=== PATIENT | female | born 1935 | race Caucasian/White ===

== ENCOUNTER 2017-08-07 11:40 | Inpatient (IN) ==
[2017-08-07 12:18] LABS: Basophils # 0.1 K/mcL (0.0-0.2); Basophils % 0.3 %; Eosinophils # 0.1 K/mcL (0.0-0.6); Eosinophils % 0.3 %; Hematocrit 38.1 % (35.3-44.9); Hemoglobin 12.9 g/dL (11.5-15.4); Immature Granulocytes % 0.4 % (0-4); Immature Platelets 1.8 % (1.1-6.1); Lymphocytes # 1.2 K/mcL (0.6-4.6); Lymphocytes % 8.4 %; Mean Corpuscular HGB Conc 33.9 g/dL (31.6-35.5); Mean Corpuscular Hemoglobin 30.9 pg (28.0-33.3); Mean Corpuscular Volume 91.4 fL (83.0-100.0); Mean Platelet Volume 9.3 fL (9.4-12.4); Monocytes # 1.5 K/mcL (0.0-1.3); Monocytes % 10.5 %; Neutrophils # 11.7 K/mcL (1.6-8.9); Platelet Count 241 K/mcL (140-400); Red Blood Count 4.17 M/mcL (3.82-4.97); Red Cell Distribution Width 12.7 % (11.5-14.5); Segmented Neutrophils % 80.1 %
[2017-08-07 12:30] LABS: Albumin 3.7 g/dL (3.5-5.0); Albumin/Globulin Ratio 0.9 (1.1-2.2); Bilirubin,Total 0.7 mg/dL (0.2-1.2); Calcium 9.7 mg/dL (8.6-10.8); Potassium 3.8 mEq/L (3.5-4.5); Total Protein 7.7 g/dL (6.0-8.3)
[2017-08-07] MEDS ORDERED: Vancomycin 2,000 MG in D5% in Water 250 ML IVPB ONE (12:35)
[2017-08-07] MEDS ORDERED: Vancomycin 2,000 MG in D5% in Water 500 ML IVPB ONE (12:38)
--- NOTE | 2017-08-07 12:52 | Emergency Department Note ---
Disposition Clinical Impression: Cellulitis Qualifiers: Site of cellulitis: extremity Site of cellulitis of extremity: lower extremity Laterality: right Qualified Code(s): L03.115 - Cellulitis of right lower limb Disposition: Admitted As Inpatient Condition: Fair Referrals: Janee Mcgowan MD [Primary Care Provider] - Forms: ED Satisfaction Letter Time of Disposition: 15:10 General Adult HPI - General Chief complaint: ED Extremity Problem,Nontraumatic Stated complaint: Foot problem Source: patient Limitations: no limitations Nursing Notes Reviewed: Yes Vital Signs Reviewed: Yes - History of Present Illness HPI Narrative: Patient presents with over 1 week of right foot erythema and also purulent drainage and she has been on Bactrim for the last 6 days without adequate improvement and now for the last 2 days has some minimal alteration in consciousness which is confusion according to her 2 daughters who are here with her. She does have significant peripheral neuropathy is not able to feel her right foot so does not have pain in this location. No blurred vision, cough, blood in the urine or stool or bruising of the skin. Social history: No smoking Pain Scale: 0 - Related Data Home Medications Medication Instructions Recorded Confirmed Aspirin Enteric Coated [Aspirin EC] 81 mg PO DAILY 07/17/15 08/07/17 Citalopram [CeleXA] 40 mg PO DAILY 07/17/15 08/07/17 Ezetimibe/Simvastatin [Vytorin 1 tab PO DAILY 07/17/15 08/07/17 10-80 mg Tablet] Losartan/Hydrochlorothiazide 1 tab PO DAILY 07/17/15 08/07/17 [Hyzaar 100-25 Tablet] Metoprolol XL (24 HR) Succ [Toprol 100 mg PO DAILY 07/17/15 08/07/17 XL] [place]-3S/Dha/Epa/Fish Oil [Fish 1 cap PO DAILY 07/17/15 08/07/17 Oil 1,200 mg Softgel] Esomeprazole Magnesium [Nexium] 40 mg PO DAILY 08/07/17 08/07/17 Sulfamethoxazole/Trimeth DS 1 cap PO Q12H 08/07/17 08/07/17 [Bactrim Ds] Allergies Allergy/AdvReac Type Severity Reaction Status Date / Time Penicillins [PCN] AdvReac Rash Verified 07/17/15 12:14 Review of Systems: Constitutional: No fever Vision: No blurred vision ENT: No rhinorrhea Respiratory: No cough Allergic: No allergies : No blood in urine GI: No blood in stool Hematologic: No bruising Dermatologic: No skin rash except there is edema and redness of the right foot Musculoskeletal: No pain in the extremities Neuro: No new numbness of the extremities Past Medical History - Past Medical History Medical history: Reports: GERD, hyperlipidemia, hypertension, other Surgical history: Reports: other Psychiatric history: Reports: anxiety, depression [employer]ICAL [employer] EM[employer]OYEE history: Reports: ectopic - Social History Smoking Status: Never smoker Smokeless Tobacco Status: No Alcohol use: Reports: none Drug use: Reports: none Physical Exam CONSTITUTIONAL: Alert and oriented X3, well-nourished, well appearing, in no apparent distress HEAD: Normocephalic; atraumatic. EYES: PERRL, no scleral icterus. NOSE: The nose is normal in appearance without rhinorrhea RESP: Normal chest excursion with respiration; breath sounds clear and equal bilaterally; no wheezes, rhonchi, or rales CARD: Regular rhythm, without murmurs, rub or gallop ABD: Non-distended; non-tender, soft,without rigidity, rebound or guarding SKIN: Normal for age and race; warm and dry; no apparent lesions Extremities: Does have some edema and erythema of the right foot crepitus or necrosis. Between the second and third toe there is purulent drainage. No fluctuant areas and no ecchymosis - General Limitations: no limitations General appearance: alert Course Vital Signs Temperature 98.4 F 08/07/17 11:48 Pulse Rate 102 08/07/17 11:48 Respiratory Rate 16 08/07/17 11:48 Blood Pressure 151/70 08/07/17 11:48 O2 Sat by Pulse Oximetry 96 08/07/17 11:48 Temperature 98.4 F 08/07/17 11:48 Pulse Rate 80 08/07/17 13:55 Respiratory Rate 18 08/07/17 13:55 Blood Pressure 122/90 08/07/17 13:55 O2 Sat by Pulse Oximetry 95 08/07/17 13:55 Oxygen Delivery Oxygen Delivery Room Air Medical Decision Making - MDM Narrative Medical decision making narrative: the patient will be started on IV vancomycin because of failed outpatient therapy with Bactrim, will be admitted especially because of altered consciousness. For me she does know the day of the week date and the year name of the hospital however her daughter states that for the last 2 days she has had some confusion which is new. Labs are pending. 1253 I did review the patient's lab results showing leukocytosis, evidence of acute renal failure as well the patient does have an x-ray which does not show osteomyelitis. I did speak with the hospitalist who accepted the patient for admission. I have started her on intravenous vancomycin because she has failed outpatient Bactrim. She does have a draining wound so there is no indication at this point for incision and drainage. 1509 - Medical Records Medical records reviewed: Yes I reviewed the patient's medical records. - Lab Data Lab results reviewed: Yes I reviewed the patient's lab results. Result diagrams: 08/07/17 12:11 08/07/17 12:11 Lab Results 08/07/17 08/07/17 08/07/17 Range/Units 12:11 12:11 12:11 WBC 14.6 H (4.3-11.1) K/mcL RBC 4.17 (3.82-4.97) M/mcL Hgb 12.9 (11.5-15.4) g/dL Hct 38.1 (35.3-44.9) % MCV 91.4 (83.0-100.0) fL MCH 30.9 (28.0-33.3) pg MCHC 33.9 (31.6-35.5) g/dL RDW 12.7 (11.5-14.5) % Plt Count 241 (140-400) K/mcL MPV 9.3 L (9.4-12.4) fL Immature Gran % 0.4 (0-4) % Seg Neutrophils % 80.1 % Lymphocytes % 8.4 % Monocytes % 10.5 % Eosinophils % 0.3 % Basophils % 0.3 % Neutrophils # 11.7 H (1.6-8.9) K/mcL Lymphocytes # 1.2 (0.6-4.6) K/mcL Monocytes # 1.5 H (0.0-1.3) K/mcL Eosinophils # 0.1 (0.0-0.6) K/mcL Basophils # 0.1 (0.0-0.2) K/mcL Immature Plt Fraction 1.8 (1.1-6.1) % Sodium 135 L (136-145) mEq/L Potassium 3.8 (3.5-4.5) mEq/L Chloride 102 (98-109) mEq/L Carbon Dioxide 20 (19-29) mEq/L BUN 18 (7-20) mg/dL Creatinine 1.33 H (0.57-1.11) mg/dL Est GFR ( Amer) 46 L (> 60) Est GFR (Non-Af Amer) 38 L (> 60) BUN/Creatinine Ratio 14 (6-26) Glucose 122 H (70-99) mg/dL Calculated Osmolality 283 (280-300) Lactic Acid 3.1 H (0.5-2.2) mmol/L Calcium 9.7 (8.6-10.8) mg/dL Total Bilirubin 0.7 (0.2-1.2) mg/dL AST 25 (5-34) Units/L ALT 20 (0-55) Units/L Alkaline Phosphatase 106 (38-126) Units/L Serum Total Protein 7.7 (6.0-8.3) g/dL Albumin 3.7 (3.5-5.0) g/dL Globulin 4.0 H (2.4-3.5) g/dL Albumin/Globulin Ratio 0.9 L (1.1-2.2) - Radiology Data Radiology results reviewed: Yes I reviewed the patient's radiology results.
--- NOTE | 2017-08-07 17:18 | Internal Med History&Physical ---
Date of Encounter: 08/07/17 Time of Encounter: 15:00 Assessment and Plan (1) Cellulitis of right foot Current visit: Yes Status: Acute She was undergoing outpatient treatment with Bactrim and her symptoms got worse. Cellulitis involving the distal third of the right foot in the first 3 toes. Skin is warm and red there is significant soft tissue edema, open wounds and drainage from the second and third toes of the right foot. Plan: IV Zosyn, wound culture, podiatry consult, ESR and CRP. Monitor WBC trend. (2) Essential hypertension Current visit: Yes Status: Acute Continue lisinopril and metoprolol. (3) Peripheral neuropathy Current visit: Yes Status: Acute Could be contributing to her fall risk. We will obtain PT OT evaluation and fall precautions. Qualifiers: Peripheral neuropathy type: polyneuropathy, unspecified Qualified Code(s): G62.9 - Polyneuropathy, unspecified (4) Elevated serum creatinine Current visit: Yes Status: Acute Monitor BUN and creatinine daily. Avoid nephrotoxins. (5) GERD (gastroesophageal reflux disease) Current visit: Yes Status: Acute Continue with PPI. Qualifiers: Esophagitis presence: without esophagitis Qualified Code(s): K21.9 - Gastro -esophageal reflux disease without esophagitis (6) DVT prophylaxis Current visit: Yes Status: Acute Heparin subcutaneous. Internal Medicine - H&P: HPI Chief complaint: Right foot swelling Admitted From: Emergency Dept Plans for Post Hospital Care: Home History of present illness: Ms. Rodríguez is a 81 year old female with past medical history significant for hypertension and peripheral neuropathy who presented to the hospital for right foot swelling and skin wounds. She reports swelling has been going on for about 5 weeks. Her primary care physician gave her 2 rounds of oral antibiotics. Recently she had been taking Bactrim for the last 6 days for foot swelling and redness. In spite of the antibiotics she noticed increasing redness that was spreading towards her ankle. She also noticed 2 new wounds on the second and third toe that started draining fluid. She denies associated fevers or chills. Denies chest pain. She has chronic numbness and she denies any foot pain. She reports bilateral lower extremity numbness weakness and she had suffered a fall last week. A 10 point review of systems was negative except as above Past medical history as above Family history positive for diabetes in both parents Social history she lives at home, is minimally ambulatory, denies tobacco alcohol and drug use. Past Med Surg Social Fam HX - Past Medical History Medical history: GERD, hyperlipidemia, hypertension, other Psychiatric history: anxiety, depression - Past Surgical History Surgical History: other - Social History Smoking Status: Never smoker Smokeless Tobacco Status: No Alcohol use: none Drug use: none Internal Medicine - H&P: Meds Aspirin Enteric Coated [Aspirin EC] 81 mg PO DAILY 07/17/15 [History] Citalopram [CeleXA] 40 mg PO DAILY 07/17/15 [History] Ezetimibe/Simvastatin [Vytorin 10-80 mg Tablet] 1 tab PO DAILY 07/17/15 [History ] Losartan/Hydrochlorothiazide [Hyzaar 100-25 Tablet] 1 tab PO DAILY 07/17/15 [ History] Metoprolol XL (24 HR) Succ [Toprol XL] 100 mg PO DAILY 07/17/15 [History] [place]-3S/Dha/Epa/Fish Oil [Fish Oil 1,200 mg Softgel] 1 cap PO DAILY 07/17/15 [ History] Esomeprazole Magnesium [Nexium] 40 mg PO DAILY 08/07/17 [History] Sulfamethoxazole/Trimeth DS [Bactrim Ds] 1 cap PO Q12H 08/07/17 [History] 3 Allergy/AdvReac Type Severity Reaction Status Date / Time Penicillins [PCN] AdvReac Rash Verified 07/17/15 12:14 All Systems PM: A 10-system review of systems was performed and is negative for pertinent findings except as documented above in the HPI. - Constitutional Vitals: Temp Pulse Resp BP Pulse Ox 98.3 F 88 16 149/72 95 08/07/17 16:15 08/07/17 16:15 08/07/17 16:15 08/07/17 16:15 08/07/17 16:15 General appearance: Present: A&O X 3 - Eye Eye exam: Present: PERRL, conjuntiva pink, sclera anicteric Pupils: Present: PERRL - Respiratory Respiratory exam: Present: CTAB. Absent: accessory muscle use, rales, rhonchi, wheezes - Cardiovascular Cardiovascular exam: Present: RRR, +S1, +S2. Absent: diastolic murmur, gallop, rubs, systolic murmur - GI/Abdominal GI/Abdominal exam: Present: normal bowel sounds, soft, no peritoneal signs. Absent: distended, tenderness - Extremities Exam Extremities exam: Present: pedal edema, warm, radial pulses palpable and symmetrical. Absent: calf tenderness, cyanotic - Neurological Exam Neurological exam: Present: CN II-XII intact, oriented X3, no focal deficits. Absent: pronater drift, facial droop, speech deficit - Skin Skin exam: Present: erythema Additional comments: Erythema and soft tissue edema of the distal third of the dorsum of the right foot and wounds noted retuned second and third right toes with a small amount of thick purulent drainage. Internal Med - H&P Results - Labs CBC & Chem 7: 08/07/17 12:11 08/07/17 12:11 Labs: Per medical record and review her baseline creatinine is 1 in February 2017. - Impressions Per medical record review on 7 left foot one culture grew Proteus sensitive to Zosyn, resistant to Levaquin and Bactrim.
[2017-08-07] MEDS ORDERED: Acetaminophen 325 MG TABLET PO PRN (17:35)
[2017-08-07] MEDS ORDERED: Naloxone 0.4 MG/ML INJ IVP PRN (17:35)
[2017-08-07] MEDS ORDERED: 0.9 % Sodium Chloride 1,000 ML IVC SCH (17:45)
[2017-08-07] MEDS ORDERED: Vancomycin 2,000 MG in D5% in Water 250 ML IVPB SCH (19:00)
[2017-08-07] MEDS: Cefepime HCl 1,000 MG in D5% in Water (Mini-Bag+) 100 ML IVPB SCH ×2 (19:29→20:36)
[2017-08-07] MEDS: *HR* Heparin 5,000 UNIT/ML VIAL SQ SCH (20:38)
[2017-08-08] MEDS ORDERED: Vancomycin 2,000 MG in D5% in Water 500 ML IVPB SCH
[2017-08-08] MEDS: *HR* Heparin 5,000 UNIT/ML VIAL SQ SCH ×2 (04:31→17:49)
[2017-08-08] MEDS: Cefepime HCl 1,000 MG in D5% in Water (Mini-Bag+) 100 ML IVPB SCH ×2 (04:32→17:49)
[2017-08-08 04:59] LABS: Basophils % 0.5 %; Eosinophils # 0.2 K/mcL (0.0-0.6); Eosinophils % 2.4 %; Hematocrit 36.3 % (35.3-44.9); Hemoglobin 12.3 g/dL (11.5-15.4); Immature Granulocytes % 0.5 % (0-4); Lymphocytes # 1.4 K/mcL (0.6-4.6); Mean Corpuscular HGB Conc 33.9 g/dL (31.6-35.5); Mean Corpuscular Hemoglobin 30.8 pg (28.0-33.3); Mean Corpuscular Volume 90.8 fL (83.0-100.0); Mean Platelet Volume 9.5 fL (9.4-12.4); Monocytes # 1.2 K/mcL (0.0-1.3); Monocytes % 14.4 %; Neutrophils # 5.4 K/mcL (1.6-8.9); Platelet Count 226 K/mcL (140-400); Red Cell Distribution Width 12.7 % (11.5-14.5); Segmented Neutrophils % 65.2 %
[2017-08-08 05:15] LABS: Calcium 9.8 mg/dL (8.6-10.8); Magnesium 1.7 mg/dL (1.6-2.6); Potassium 4.1 mEq/L (3.5-4.5)
[2017-08-08] MEDS: Metoprolol XL (24 HR) Succ 50 MG TAB.ER.24H PO SCH (08:15)
[2017-08-08] MEDS: Aspirin Enteric Coated 81 MG Tablet PO SCH (08:15)
--- NOTE | 2017-08-08 08:44 | Internal Med Progress Note ---
Date of Encounter: 08/08/17 Time of Encounter: 08:42 - Assessment and plan (1) Severe sepsis Current Visit: Yes Status: Acute Assessment and plan: Patient presented with leukocytosis, tachycardia and lactic acidosis, noted to have infection in right foot. Follow-up cultures and continue IV antibiotics as below. Improved leukocytosis and lactic acidosis. Monitor vital signs closely. (2) Osteomyelitis Current Visit: Yes Status: Acute Assessment and plan: Patient presents with subacute right foot wound in the second interdigital webspace along with cellulitis in second and third toes. X-ray right foot showed no acute abnormality but MRI right foot showed changes suggestive of osteomyelitis in middle and distal phalanges of the third toe. Outpatient wound culture from August 01 grows Proteus. Continue broad-spectrum IV antibiotics-cefepime and vancomycin for now. Pain control with when necessary oral Percocet. Podiatry consult for possible amputation and local wound care. Qualifiers: Osteomyelitis type: other acute Osteomyelitis location: foot Laterality: right Qualified Code(s): M86.171 - Other acute osteomyelitis, right ankle and foot (3) DEMETRIUS (acute kidney injury) Current Visit: Yes Status: Acute Assessment and plan: Serum creatinine noted to be improving. Likely related to sepsis. Continue IV hydration. (4) Depression Current Visit: Yes Status: Chronic Qualifiers: Depression Type: unspecified Qualified Code(s): F32.9 - Major depressive disorder, single episode, unspecified (5) Cellulitis of right foot Current Visit: Yes Status: Acute Assessment and plan: Continue antibiotics as mentioned above. Right lower extremity elevation. Supportive care. (6) Essential hypertension Current Visit: Yes Status: Chronic Assessment and plan: Blood pressure noted to be well controlled. Resume home medications. (7) Peripheral neuropathy Current Visit: Yes Status: Chronic Assessment and plan: Check hemoglobin A1c. Uncertain etiology of neuropathy but noted to have decreased distal sensation, which could be causing her right foot infection and warmth. Qualifiers: Peripheral neuropathy type: polyneuropathy, unspecified Qualified Code(s): G62.9 - Polyneuropathy, unspecified (8) GERD (gastroesophageal reflux disease) Current Visit: Yes Status: Chronic Qualifiers: Esophagitis presence: without esophagitis Qualified Code(s): K21.9 - Gastro -esophageal reflux disease without esophagitis - Subjective Interval history: Reports pain and swelling in 2nd and 3rd right toes; no fever/chills, nausea/ vomiting, dyspnea. - Constitutional Vitals: Temp Pulse Resp BP Pulse Ox 98.1 F 75 16 140/69 95 08/08/17 06:51 08/08/17 06:51 08/08/17 06:51 08/08/17 06:51 08/08/17 06:51 General appearance: Present: A&O X 3, answers questions appropriately - Respiratory Respiratory exam: Present: CTAB. Absent: accessory muscle use, rales, rhonchi, wheezes - Cardiovascular Cardiovascular exam: Present: RRR, +S1, +S2. Absent: diastolic murmur, gallop, rubs, systolic murmur - GI/Abdominal GI/Abdominal exam: Present: normal bowel sounds, soft, no peritoneal signs. Absent: distended, tenderness - Extremities Exam Extremities exam: Present: full ROM, warm, radial pulses palpable and symmetrical. Absent: calf tenderness, cyanotic, pedal edema Additional comments: Right foot- warmth, some swelling, erythema/tenderness/diffuse edema of 2nd and 3rd ties; macerated wound in 2nd webspace; pulses intact decreased sensation to light touch and pinprick in toes - Neurological Exam Neurological exam: Present: CN II-XII intact, oriented X3, no focal deficits. Absent: pronater drift, facial droop, speech deficit Internal Medicine: Result - Labs CBC & Chem 7: 08/08/17 04:21 08/08/17 04:21 Labs: Short CBC 08/08/17 Range/Units 04:21 WBC 8.2 (4.3-11.1) K/mcL Hgb 12.3 (11.5-15.4) g/dL Hct 36.3 (35.3-44.9) % Plt Count 226 (140-400) K/mcL Neutrophils # 5.4 (1.6-8.9) K/mcL BMP 08/08/17 04:21 Sodium 136 Potassium 4.1 Chloride 104 Carbon Dioxide 23 BUN 12 Creatinine 1.07 Glucose 111 H Calcium 9.8 - Impressions Impressions Foot MRI 08/07/17 17:39 IMPRESSION: Image quality is significantly degraded secondary to motion artifact. Within limits of the exam there is marrow signal abnormality within the middle and distal phalanges of the 3rd toe with very subtle decreased T1 signal within the middle phalanx of the 3rd digit compared with the surrounding normal marrow signal. Findings are highly suspicious for early osteomyelitis of the middle and distal phalanges of the 3rd toe given history of open wound. Soft tissues demonstrate subcutaneous edema with no organized fluid collection identified. Recommend clinical correlation for cellulitis. Subtle well corticated ossific fragment at the base of the 2nd metatarsal which may reflect remote fracture fragment. There is also question of mild lateral subluxation of the 2nd metatarsal base in relation to the intermediate cuneiform. Evaluation is limited secondary to pronounced motion artifact. D/ / Deepak Stewart MD / Deepak Stewart MD Interpreting Provider: Deepak Stewart MD Consult Discharge Plan - Plan Referrals: Janee Mcgowan MD [Primary Care Provider] -
[2017-08-08] MEDS ORDERED: Aminoglycoside Consult 1 EACH MC ONE (08:55)
[2017-08-08 09:00] LABS: Hemoglobin A1C 5.6 %
[2017-08-08] MEDS ORDERED: SIMVASTATIN PO SCH (09:00)
[2017-08-08] MEDS ORDERED: EZETIMIBE PO SCH (09:00)
--- NOTE | 2017-08-08 13:47 | Podiatry Consult Note ---
Date of Encounter: 08/08/17 Time of Encounter: 12:00 Assessment and Plan (1) Pressure ulcer with full thickness skin loss involving damage or necrosis of subcutaneous tissue Current visit: Yes Status: Acute #1 assessment complete at bedside #2 patient was last seen in clinic on the wound cultures were obtained and are listed below- #3 Will apply 0.25 dakins wet to dry dressings to wounds at this time covered with dry sterile dressing - BID changes #4 will obtain vascular studies and depending on results will consult vascular #5 Foot xray and MRI reviewed, possible suggestion of early osteomyelitis- will treat with antibiotics and dressing changes at this time- obtain vascular studies and then will make decision on possible toe amputation #6 most recent wound culture and sensitivity - internal medicine managing antibiotic coverage - patient currently on zosyn- and is noted to be susceptible [facility] [facility] 1: Proteus mirabilis F Quantity Abundant (>100 Colonies) F Sensitivity is included in the final report. F F F Proteus mirabilis: REACTION F Amoxicillin/Clavulanic acid <=2 S S F Ampicillin <=2 S S F Ampicillin/Sulbactam <=2 S S F Cefazolin 8 S S F Cefepime <=1 S S F Ceftazidime <=1 S S F Ceftriaxone <=1 S S F Ciprofloxacin >=4 R R F Ertapenem <=0.5 S S F Gentamicin <=1 S S F Imipenem 4 S S F Levofloxacin >=8 R R F Tobramycin <=1 S S F Trimethoprim/Sulfamethoxazole >=320 R R F Piperacillin/Tazobactam <=4 S S Maile Rodríguez F, 1935 Accession ID: [id number] Foot X-Ray 08/07/17 12:23 IMPRESSION: 1. Persistent dorsal soft tissue swelling with more prominent 2nd digit soft tissue swelling. No discrete erosive changes to suggest osteomyelitis. Consider further evaluation with MRI if there remains a high clinical suspicion. 2. Subtle lucency at the base of the 5th metatarsal, and a nondisplaced fracture cannot be excluded given diffuse underlying osteopenia. 3. Questionable mild lateral subluxation of the 2nd metatarsal at the TMT joint with degenerative changes in the midfoot. Findings could be related to neuropathic changes or prior trauma. D/ / 08/07/2017 14:11:52 Maria R Nuñez MD / lgray Interpreting Provider: Maria R Nuñez MD Foot MRI 08/07/17 17:39 IMPRESSION: Image quality is significantly degraded secondary to motion artifact. Within limits of the exam there is marrow signal abnormality within the middle and distal phalanges of the 3rd toe with very subtle decreased T1 signal within the middle phalanx of the 3rd digit compared with the surrounding normal marrow signal. Findings are highly suspicious for early osteomyelitis of the middle and distal phalanges of the 3rd toe given history of open wound. Soft tissues demonstrate subcutaneous edema with no organized fluid collection identified. Recommend clinical correlation for cellulitis. Subtle well corticated ossific fragment at the base of the 2nd metatarsal which may reflect remote fracture fragment. There is also question of mild lateral subluxation of the 2nd metatarsal base in relation to the intermediate cuneiform. Evaluation is limited secondary to pronounced motion artifact. D/ / Deepak Stewart MD / Deepak Stewart MD Interpreting Provider: Deepak Stewart MD Qualifiers: Pressure ulcer location: toe Laterality: right Qualified Code(s): L89.893 - Pressure ulcer of other site, stage 3 (2) Cellulitis of right foot Current visit: Yes Status: Acute #1 continue current antibiotic treatment #2 wound cultures which were recently obtained positive for proteus susceptible to zosyn #3 consult ID if needed for nursing home antibiotic coverage and monitoring History of Present Illness HPI: Ms. Rodríguez is a 81 year old female who has been consulted to us regarding ulcerations of toe #2 #3 right foot. Medical hx sig for HTN, HLD, essential tremor, and reported neuropathy. Patient arrived to [facility] regarding worsening ulcerations of her right foot. She was last seen in podiatry clinic on 08/01 and full thickness ulcerations were noted to toes at that time. Patient was started on bactrim. Wound cultures were obtained during office visit and were positive for proteus however it appears it was resistant to bactrim. Patient denies any fevers, chills, n/v or flu like symptoms. States she has been placing some type of powdered mix to the wounds. Patient states she does not ambulate very much. Patient states she does not have diabetes and she does not know why these ulcers appear. Past Med Surg Social Fam HX - Past Medical History Medical history: GERD, hyperlipidemia, hypertension, other Psychiatric history: anxiety, depression - Past Surgical History Surgical History: other - Social History Smoking Status: Never smoker Smokeless Tobacco Status: No Alcohol use: none Drug use: none - Family History Father Name: Donovan Living Status: Cause of : stroke Mother Adopted: [place]: Arely Living Status: Cause of : lung disease Medications and Allergies Aspirin Enteric Coated [Aspirin EC] 81 mg PO DAILY 07/17/15 [History] Citalopram [CeleXA] 40 mg PO DAILY 07/17/15 [History] Ezetimibe/Simvastatin [Vytorin 10-80 mg Tablet] 1 tab PO DAILY 07/17/15 [History ] Losartan/Hydrochlorothiazide [Hyzaar 100-25 Tablet] 1 tab PO DAILY 07/17/15 [ History] Metoprolol XL (24 HR) Succ [Toprol XL] 100 mg PO DAILY 07/17/15 [History] [place]-3S/Dha/Epa/Fish Oil [Fish Oil 1,200 mg Softgel] 1 cap PO DAILY 07/17/15 [ History] Esomeprazole Magnesium [Nexium] 40 mg PO DAILY 08/07/17 [History] Sulfamethoxazole/Trimeth DS [Bactrim Ds] 1 cap PO Q12H 08/07/17 [History] 3 Allergy/AdvReac Type Severity Reaction Status Date / Time Penicillins [PCN] AdvReac Rash Verified 07/17/15 12:14 All Systems Reviewed: A 10-system review of systems was performed and is negative for pertinent findings except as documented above in the HPI. Physical Exam - Constitutional Vitals: Temp Pulse Resp BP Pulse Ox 98.6 F 72 16 157/72 93 08/08/17 10:34 08/08/17 10:34 08/08/17 10:34 08/08/17 10:34 08/08/17 10:34 Exam: Awake, alert and oriented x3. Pedal pulses are faint, positive to signal Toes are warm, cap refill 3-4 seconds however there is necrosis noted to ulcerations No calf pain with manual compression No sensation to right foot to light or moderate touch Full thickness stage IV ulceration noted to lateral aspect toe #2 and medial aspect of toe #3. Wounds are connected however are by an area of maceration to webspaces of toes. wound of toe #2 [id number] with fibrous slough base, #3 2.5cmx2.5cmx0.3cm fibrous slough base and noted edges of necrotic tissue noted. Macerated skin removed using tissue nipper to allow for proper assessment of wounds. No purulent drainage. No odor. Erythema and edema noted to toes. no streaking. no ascending cellulitis noted. Results - Labs Result Diagrams: 08/08/17 04:21 08/08/17 04:21 Labs: Abnormal lab results ESR 83 mm/hr (0-15) H 08/07/17 12:11 Est GFR (Non-Af Amer) 49 (> 60) L 08/08/17 04:21 Glucose 111 mg/dL (70-99) H 08/08/17 04:21 C-Reactive Protein 69 mg/L (Less than 5) H 08/07/17 12:11 Globulin 4.0 g/dL (2.4-3.5) H 08/07/17 12:11 Albumin/Globulin Ratio 0.9 (1.1-2.2) L 08/07/17 12:11 H & H 08/08/17 Range/Units 04:21 Hgb 12.3 (11.5-15.4) g/dL Hct 36.3 (35.3-44.9) % All other labs normal. Consult Discharge Plan - Plan Referrals: Janee Mcgowan MD [Primary Care Provider] -
[2017-08-08] MEDS ORDERED: Vancomycin 1,250 MG in D5% in Water 250 ML IVPB SCH (23:00)
[2017-08-09] MEDS ORDERED: 0.9 % Sodium Chloride 1,000 ML ONE (06:11)
[2017-08-09] MEDS: Cefepime HCl 1,000 MG in D5% in Water (Mini-Bag+) 100 ML IVPB SCH ×2 (06:14→18:39)
[2017-08-09] MEDS: *HR* Heparin 5,000 UNIT/ML VIAL SQ SCH ×2 (06:15→18:41)
[2017-08-09] MEDS: Aspirin Enteric Coated 81 MG Tablet PO SCH (08:09)
[2017-08-09] MEDS: Metoprolol XL (24 HR) Succ 50 MG TAB.ER.24H PO SCH (08:09)
--- NOTE | 2017-08-09 10:55 | Internal Med Progress Note ---
Date of Encounter: 08/09/17 Time of Encounter: 10:54 - Assessment and plan (1) Severe sepsis Current Visit: Yes Status: Resolved Assessment and plan: Severe sepsis secondary to right foot infection. Improved leukocytosis, tachycardia and lactic acidosis. Continue IV antibiotics and treatment of underlying conditions as below. (2) Osteomyelitis Current Visit: Yes Status: Acute Assessment and plan: Patient presents with subacute right foot wound in the second interdigital webspace along with cellulitis in second and third toes. X-ray right foot showed no acute abnormality but MRI right foot showed subtle changes suggestive of osteomyelitis in middle and distal phalanges of the third toe. Outpatient wound culture from August 01 grows Proteus. Continue IV antibiotics-cefepime and discontinue vancomycin for now. Pain control with when necessary oral Percocet. Case discussed with podiatry, recommend aggressive local wound care along with IV antibiotics. Recommended arterial studies, which are noted to be normal. May consider toe amputation in the future, if there is no improvement in wound/infection. We will consult infectious diseases. Physical and occupational therapy evaluation completed, recommend placement in extended care facility due to inability to ambulate independently and living alone. We will consult psychosocial rehabilitation counselor. Qualifiers: Osteomyelitis type: other acute Osteomyelitis location: foot Laterality: right Qualified Code(s): M86.171 - Other acute osteomyelitis, right ankle and foot (3) DEMETRIUS (acute kidney injury) Current Visit: Yes Status: Acute Assessment and plan: Serum creatinine noted to be improving. Likely related to sepsis. Continue IV hydration. (4) Depression Current Visit: Yes Status: Chronic Qualifiers: Depression Type: unspecified Qualified Code(s): F32.9 - Major depressive disorder, single episode, unspecified (5) Cellulitis of right foot Current Visit: Yes Status: Acute Assessment and plan: Continue antibiotics as mentioned above. Right lower extremity elevation. Supportive care. (6) Essential hypertension Current Visit: Yes Status: Chronic Assessment and plan: Blood pressure noted to be well controlled. Resume home medications. (7) Peripheral neuropathy Current Visit: Yes Status: Chronic Assessment and plan: Uncertain etiology of neuropathy but noted to have decreased distal sensation, which could be causing her right foot infection and warmth. Hemoglobin A1c noted to be 5.6%. Qualifiers: Peripheral neuropathy type: polyneuropathy, unspecified Qualified Code(s): G62.9 - Polyneuropathy, unspecified (8) GERD (gastroesophageal reflux disease) Current Visit: Yes Status: Chronic Qualifiers: Esophagitis presence: without esophagitis Qualified Code(s): K21.9 - Gastro -esophageal reflux disease without esophagitis - Subjective Interval history: Improved pain in right foot. No fever/chills, nausea, vomting. Unable to ambulate independently, will consider rehab although not completely sure at this time. - Constitutional Vitals: Temp Pulse Resp BP Pulse Ox 98.0 F 65 16 151/66 96 08/09/17 07:16 08/09/17 07:16 08/09/17 07:16 08/09/17 07:16 08/09/17 07:16 General appearance: Present: A&O X 3, answers questions appropriately - Respiratory Respiratory exam: Present: CTAB. Absent: accessory muscle use, rales, rhonchi, wheezes - Cardiovascular Cardiovascular exam: Present: RRR, +S1, +S2. Absent: diastolic murmur, gallop, rubs, systolic murmur - GI/Abdominal GI/Abdominal exam: Present: normal bowel sounds, soft, no peritoneal signs. Absent: distended, tenderness - Extremities Exam Extremities exam: Present: warm, radial pulses palpable and symmetrical. Absent : calf tenderness, cyanotic, pedal edema Additional comments: right foot with dry dressing intact Internal Medicine: Result - Labs CBC & Chem 7: 08/08/17 04:21 08/08/17 04:21 Consult Discharge Plan - Plan Referrals: Janee Mcgowan MD [Primary Care Provider] -
[2017-08-10] MEDS: Cefepime HCl 1,000 MG in D5% in Water (Mini-Bag+) 100 ML IVPB SCH ×2 (06:14→17:43)
[2017-08-10] MEDS: *HR* Heparin 5,000 UNIT/ML VIAL SQ SCH ×2 (06:14→17:44)
[2017-08-10] MEDS: Aspirin Enteric Coated 81 MG Tablet PO SCH (08:15)
[2017-08-10] MEDS: Metoprolol XL (24 HR) Succ 50 MG TAB.ER.24H PO SCH (08:15)
--- NOTE | 2017-08-10 13:18 | Internal Med Progress Note ---
Date of Encounter: 08/10/17 Time of Encounter: 10:00 - Assessment and plan (1) Severe sepsis Current Visit: Yes Status: Resolved (2) Osteomyelitis Current Visit: Yes Status: Acute Assessment and plan: Patient presents with subacute right foot wound in the second interdigital webspace along with cellulitis in second and third toes. X-ray right foot showed no acute abnormality but MRI right foot showed subtle changes suggestive of osteomyelitis in middle and distal phalanges of the third toe. Outpatient wound culture from August 01 grows Proteus. Continue IV antibiotics-cefepime- day 3. Pain control with when necessary oral Percocet. Podiatry on board- recommend aggressive local wound care along with IV antibiotics. Arterial studies are noted to be normal. May consider toe amputation in the future, if there is no improvement in wound/infection. We will consult infectious diseases. Physical and occupational therapy evaluation completed, recommend placement in extended care facility due to inability to ambulate independently and living alone. Consulted child welfare social worker. Qualifiers: Osteomyelitis type: other acute Osteomyelitis location: foot Laterality: right Qualified Code(s): M86.171 - Other acute osteomyelitis, right ankle and foot (3) DEMETRIUS (acute kidney injury) Current Visit: Yes Status: Resolved Assessment and plan: Serum creatinine noted to be improving. Likely related to sepsis. (4) Depression Current Visit: Yes Status: Chronic Qualifiers: Depression Type: unspecified Qualified Code(s): F32.9 - Major depressive disorder, single episode, unspecified (5) Cellulitis of right foot Current Visit: Yes Status: Resolved Assessment and plan: Continue antibiotics as mentioned above. Right lower extremity elevation. Supportive care. (6) Essential hypertension Current Visit: Yes Status: Chronic (7) Peripheral neuropathy Current Visit: Yes Status: Chronic Assessment and plan: Uncertain etiology of neuropathy but noted to have decreased distal sensation, which could be causing her right foot infection and warmth. Hemoglobin A1c noted to be 5.6%. Qualifiers: Peripheral neuropathy type: polyneuropathy, unspecified Qualified Code(s): G62.9 - Polyneuropathy, unspecified (8) GERD (gastroesophageal reflux disease) Current Visit: Yes Status: Chronic Qualifiers: Esophagitis presence: without esophagitis Qualified Code(s): K21.9 - Gastro -esophageal reflux disease without esophagitis - Subjective Interval history: Lying in bed comfortably. Denies fevers, chills, nausea, vomiting. Improved right foot pain. - Constitutional Vitals: Temp Pulse Resp BP Pulse Ox 97.7 F 64 16 136/70 92 08/10/17 10:18 08/10/17 10:18 08/10/17 10:18 08/10/17 10:18 08/10/17 10:18 General appearance: Present: A&O X 3, answers questions appropriately - Respiratory Respiratory exam: Present: CTAB. Absent: accessory muscle use, rales, rhonchi, wheezes - Cardiovascular Cardiovascular exam: Present: RRR, +S1, +S2. Absent: diastolic murmur, gallop, rubs, systolic murmur Internal Medicine: Result - Labs CBC & Chem 7: 08/08/17 04:21 08/08/17 04:21 Consult Discharge Plan - Plan Referrals: Janee Mcgowan MD [Primary Care Provider] -
--- NOTE | 2017-08-10 23:02 | Podiatry Progress Note ---
Date of Encounter: 08/10/17 Time of Encounter: 23:00 - Assessment and Plan (1) Cellulitis Current Visit: Yes Status: Acute We will continue Dakin solution and dressing changes. We will monitor for any increasing signs of infection. We will continue IV antibiotics. Qualifiers: Site of cellulitis: extremity Site of cellulitis of extremity: lower extremity Laterality: right Qualified Code(s): L03.115 - Cellulitis of right lower limb Subjective Principal diagnosis: Ulcer with possible infection Interval history: Patient relates overall improvement. Patient denies any new symptoms. Objective - Vital Signs Vital Signs: Vital Signs Temp Pulse Resp BP Pulse Ox 08/10/17 19:00 97.9 F 62 15 144/69 95 08/10/17 15:54 97.9 F 63 16 127/65 95 08/10/17 10:18 97.7 F 64 16 136/70 92 08/10/17 07:07 98.1 F 62 16 143/80 94 08/10/17 04:33 98.2 F 65 17 138/59 96 Intake and Output 08/10/17 08/10/17 08/10/17 07:59 15:59 23:59 Intake Total 300 / 300 480 / 480 340 / 340 Output Total 0 / 0 Balance 300 / 300 480 / 480 340 / 340 Intake: IV Fluids 100 / 100 100 / 100 Maxipime 1,000 MG In Dextrose 5 100 / 100 100 / 100 % (Minibag+) 100 ML 100 ML @ 200 mls/hr IVPB Q12HR [facility] Rx#: [id number] Oral 200 / 200 480 / 480 240 / 240 Output: Urine 0 / 0 Other: Meal Lunch Dinner Percent of Meal Consumed 90% 100% # Voids 1 # Urine Diapers 1 Weight 87.18 kg Patient Weight 08/10/17 23:59 Weight 87.18 kg - Exam Exam: Awake, alert and oriented x3. Pedal pulses are faint, positive to signal Toes are warm, cap refill 3-4 seconds. No calf pain with manual compression No sensation to right foot to light or moderate touch Full thickness stage IV ulceration noted to lateral aspect toe #2 and medial aspect of toe #3. Wounds are connected however are by an area of maceration to webspaces of toes, but less than the day prior. wound of toe #2 [id number] with fibrous slough base, #3 2.5cmx2.5cmx0.3cm fibrous slough base. No purulent drainage. No odor. Erythema and edema noted to toes. no streaking. no ascending cellulitis noted. - Lab Result Diagrams: 08/08/17 04:21 08/08/17 04:21 Labs: Abnormal lab results ESR 83 mm/hr (0-15) H 08/07/17 12:11 Est GFR (Non-Af Amer) 49 (> 60) L 08/08/17 04:21 Glucose 111 mg/dL (70-99) H 08/08/17 04:21 C-Reactive Protein 69 mg/L (Less than 5) H 08/07/17 12:11 Globulin 4.0 g/dL (2.4-3.5) H 08/07/17 12:11 Albumin/Globulin Ratio 0.9 (1.1-2.2) L 08/07/17 12:11 Microbiology, Last 48 Hours 08/07/17 18:14 Blood Culture - Preliminary Peripheral Venipuncture No growth. 08/07/17 18:14 Blood Culture - Preliminary Peripheral Venipuncture No growth. Consult Discharge Plan - Plan Referrals: Janee Mcgowan MD [Primary Care Provider] -
[2017-08-11 05:02] LABS: BUN/Creatinine Ratio 18 (6-26); Blood Urea Nitrogen 17 mg/dL (7-20); Calcium 9.3 mg/dL (8.6-10.8); Carbon Dioxide 24 mEq/L (19-29); Chloride 106 mEq/L (98-109); Glucose 107 mg/dL (70-99); Magnesium 1.5 mg/dL (1.6-2.6); Osmolality,Calculated 290 (280-300); Potassium 4.3 mEq/L (3.5-4.5); Sodium 139 mEq/L (136-145); eGFR For African Americans > 60 (> 60); eGFR For Non-African Americans 56 (> 60)
[2017-08-11] MEDS: *HR* Heparin 5,000 UNIT/ML VIAL SQ SCH ×2 (05:40→17:03)
[2017-08-11] MEDS: Cefepime HCl 1,000 MG in D5% in Water (Mini-Bag+) 100 ML IVPB SCH (05:40)
[2017-08-11] MEDS: Metoprolol XL (24 HR) Succ 50 MG TAB.ER.24H PO SCH (08:16)
[2017-08-11] MEDS: Aspirin Enteric Coated 81 MG Tablet PO SCH (08:16)
[2017-08-11] MEDS ORDERED: Magnesium Sulfate 2 GM in D5% in Water 100 ML IVPB ONE (09:52)
--- NOTE | 2017-08-11 10:43 | Internal Med Progress Note ---
Date of Encounter: 08/11/17 Time of Encounter: 09:50 - Assessment and plan (1) Severe sepsis Current Visit: Yes Status: Resolved (2) Osteomyelitis Current Visit: Yes Status: Acute Assessment and plan: Patient presents with subacute right foot wound in the second interdigital webspace along with cellulitis in second and third toes. X-ray right foot showed no acute abnormality but MRI right foot showed subtle changes suggestive of osteomyelitis in middle and distal phalanges of the third toe. Outpatient wound culture from August 01 grows Proteus. Continue IV antibiotics-cefepime- day 4. Pain control with when necessary oral Percocet. Podiatry on board- recommend aggressive local wound care along with IV antibiotics. Arterial studies are noted to be normal. May consider toe amputation in the future, if there is no improvement in wound/infection. Consulted infectious diseases. Physical and occupational therapy evaluation completed, recommend placement in extended care facility due to inability to ambulate independently and living alone. Consulted child protective services social worker. Qualifiers: Osteomyelitis type: other acute Osteomyelitis location: foot Laterality: right Qualified Code(s): M86.171 - Other acute osteomyelitis, right ankle and foot (3) DEMETRIUS (acute kidney injury) Current Visit: Yes Status: Resolved Assessment and plan: Patient has improved serum creatinine, however does have mild renal dysfunction , probably chronic kidney disease stage III. Continue to monitor serum creatinine and dose antibiotics according to current GFR. (4) Depression Current Visit: Yes Status: Chronic Qualifiers: Depression Type: unspecified Qualified Code(s): F32.9 - Major depressive disorder, single episode, unspecified (5) Cellulitis of right foot Current Visit: Yes Status: Resolved (6) Essential hypertension Current Visit: Yes Status: Chronic Assessment and plan: Blood pressure noted to be fairly controlled. Resume home medications- Losartan and HCTZ, which were initially held due to DEMETRIUS. (7) Peripheral neuropathy Current Visit: Yes Status: Chronic Assessment and plan: Uncertain etiology of neuropathy but noted to have decreased distal sensation, which could be causing her right foot infection and warmth. Hemoglobin A1c noted to be 5.6%. Qualifiers: Peripheral neuropathy type: polyneuropathy, unspecified Qualified Code(s): G62.9 - Polyneuropathy, unspecified (8) GERD (gastroesophageal reflux disease) Current Visit: Yes Status: Chronic Qualifiers: Esophagitis presence: without esophagitis Qualified Code(s): K21.9 - Gastro -esophageal reflux disease without esophagitis - Subjective Interval history: Denies new complaints; right toes wound healing well; improved pain and redness. - Constitutional Vitals: Temp Pulse Resp BP Pulse Ox 98.1 F 65 14 152/70 93 08/11/17 06:21 08/11/17 06:21 08/11/17 06:21 08/11/17 06:21 08/11/17 06:21 General appearance: Present: A&O X 3, answers questions appropriately - Respiratory Respiratory exam: Present: CTAB. Absent: accessory muscle use, rales, rhonchi, wheezes - Cardiovascular Cardiovascular exam: Present: RRR, +S1, +S2. Absent: diastolic murmur, gallop, rubs, systolic murmur - Extremities Exam Extremities exam: Present: full ROM, warm, radial pulses palpable and symmetrical. Absent: calf tenderness, cyanotic, pedal edema Additional comments: Left 2nd and 3rd toes- improved erythema and swelling; macerated wound in 2nd webspace healing well. Internal Medicine: Result - Labs CBC & Chem 7: 08/08/17 04:21 08/11/17 04:20 Labs: BMP 08/11/17 04:20 Sodium 139 Potassium 4.3 Chloride 106 Carbon Dioxide 24 BUN 17 Creatinine 0.95 Glucose 107 H Calcium 9.3 Consult Discharge Plan - Plan Referrals: Janee Mcgowan MD [Primary Care Provider] -
--- NOTE | 2017-08-11 15:59 | Infectious Disease Consult ---
Date of Encounter: 08/11/17 Time of Encounter: 15:56 Assessment and Plan (1) Severe sepsis Status: Resolved Assessment and plan: The patient had two SIRS criteria plus DEMETRIUS and lactic acidosis on admission. Likely secondary to right foot osteomyelitis and cellulitis. Improved. WBC has normalized. Tachycardia has resolved. Blood cultures drawn 08/07/17 are NGTD x 2 sets. (2) Osteomyelitis Status: Acute Assessment and plan: Causative organism unclear, but likely Proteus mirabilis per wound culture obtained 08/01/17. Secondary to chronic foot ulcer of the second toe. MRI of the right foot shows findings consistent with osteomyelitis of the middle and distal phalanges of the third toe. ESR 83, CRP 69. Podiatry consulted and following: would like to attempt salvage therapy at this point. ABIs are normal. Discontinue Cefepime. Start Rocephin 2 grams IV daily. The patient has a documented allergy to PCN, but has been tolerating Cefepime without a problem. Duration of treatment depends on the clinical picture, but likely 6 weeks of IV antibiotics. Consult VAT for EPIV placement. director of special services to assist with discharge planning. The patient states she is okay with going to rehab for her IV antibiotics and wound care. Continue wound care and activity restrictions per the primary team. Qualifiers: Osteomyelitis type: other acute Osteomyelitis location: foot Laterality: right Qualified Code(s): M86.171 - Other acute osteomyelitis, right ankle and foot (3) Cellulitis of right foot Status: Resolved Assessment and plan: Location: Right foot. Causative organism likely Proteus mirabilis. Likely secondary to chronic toe ulcer. Continue wound care per podiatry's recommendations. Continue antibiotics as above. (4) Pressure ulcer with full thickness skin loss involving damage or necrosis of subcutaneous tissue Status: Acute Assessment and plan: Chronic: Per the patient's daughter, this has been ongoing for about 6 weeks. Continue wound care per podiatry's recommendations. Qualifiers: Pressure ulcer location: toe Laterality: right Qualified Code(s): L89.893 - Pressure ulcer of other site, stage 3 (5) DEMETRIUS (acute kidney injury) Status: Resolved Assessment and plan: Likely secondary to sepsis. Resolved. (6) Lactic acidosis Status: Acute Assessment and plan: Likely secondary to sepsis. Resolved. (7) Peripheral neuropathy Status: Chronic Assessment and plan: Discussed the importance of wearing protective footwear at all times and checking her feet daily. Qualifiers: Peripheral neuropathy type: polyneuropathy, unspecified Qualified Code(s): G62.9 - Polyneuropathy, unspecified (8) GERD (gastroesophageal reflux disease) Status: Chronic Qualifiers: Esophagitis presence: without esophagitis Qualified Code(s): K21.9 - Gastro -esophageal reflux disease without esophagitis (9) Essential hypertension Status: Chronic Infectious Disease HPI - Data of Consult Patient: new to practice Consult date: 08/11/17 Requesting Physician: Geovanna Euceda MD Primary Care Provider: Janee Mcgowan - Consult Narrative Reason for consult: Osteomyelitis right foot History of present illness: Ms. Rodríguez is a 81 year old female is medical history of acid reflux, hyperlipidemia, hypertension, anxiety, and depression. The patient was admitted to the hospital August 07 for cellulitis of the right foot. We are consult August 11 or antibiotic recommendations regarding osteomyelitis of the right foot. The patient is an 81-year-old female with past medical history as stated above. The patient's states that she has been dealing with a right second toe ulcer for the last 6 weeks. She states she saw her PCP and was placed on a stool or course of oral Bactrim and the ulcer was looking good. She states she saw Dr. Sabillon for wound care recommendations and the foot was looking very good until last week when all of a sudden it began to get red and swollen and had a new ulcer appear on the third toe. She states she was put back on Bactrim, but the foot continued to worsen in the patient developed some altered mental status. She was instructed to emergency department for evaluation. Upon arrival, the patient was tachycardic and afebrile. She had leukocytosis with liquid predominance. ESR is elevated at 83 with a CRP of 69. Her lactic acid was 3.1. She also had acute kidney injury. A right foot x-ray negative for osteomyelitis. Blood cultures were obtained 2 sets and the patient was started on IV vancomycin. She was admitted to the hospital for further evaluation. Admission, the patient has been evaluated by podiatry at this point they would like to hold off on surgery. Her white blood cell count has normalized. Her acute kidney injury a lactic acidosis have resolved. ABIs were completed that were all. The medical record reveals the patient had a superficial wound culture came back on August 01 that was positive for Proteus mirabilis that is resistant to 4 quinolones and Bactrim. Currently, the patient is on IV cefepime. We've been asked to evaluate and make further recommendations. In my exam today, the patient states that overall she feels well. She denied any fevers or chills or rigors prior to admission. She denies any headache or neck pain. She denied any chest pain, shortness of breath, or cough. She denies any nausea, vomiting, diarrhea, or constipation. The patient's daughter states she was having some dry heaves prior to admission. She denies any abdominal pain or urinary complaints. She states her appetite is at baseline. She denies any pain in the affected extremity and states she never has pain to her peripheral neuropathy. She denies any back or leg pain. She does report there were some redness that extends up the foot to the ankle, but there is no streaking up the leg. She reports that there is a foul odor and lots of swelling. She denies any other oral thrush or new skin lesions. CC: Geovanna Euceda MD Past Med Surg Social Fam HX - Past Medical History Attestation: Yes The following information was validated with the patient. Source: patient, old records reviewed, nursing notes reviewed Medical history: GERD, hyperlipidemia, hypertension, other Psychiatric history: anxiety, depression - Past Surgical History Surgical History: orthopedic, other (Bilateral foot fracture ORIF), other - Social History Smoking Status: Never smoker Smokeless Tobacco Status: No Alcohol use: none Drug use: none Occupational status: unemployed Current living situation: Home - Independent Activity Level: Independent ambulation Recent Out of Country Travel Within the Last 8 Weeks: No Exposure or Possible Exposure to Illness During Travel: No - Family History Father Name: Donovan Living Status: Cause of : stroke Mother Adopted: [place]: Arely Living Status: Cause of : lung disease Infectious Disease-CN:Meds Aspirin Enteric Coated [Aspirin EC] 81 mg PO DAILY 07/17/15 [History] Citalopram [CeleXA] 40 mg PO DAILY 07/17/15 [History] Ezetimibe/Simvastatin [Vytorin 10-80 mg Tablet] 1 tab PO DAILY 07/17/15 [History ] Losartan/Hydrochlorothiazide [Hyzaar 100-25 Tablet] 1 tab PO DAILY 07/17/15 [ History] Metoprolol XL (24 HR) Succ [Toprol XL] 100 mg PO DAILY 07/17/15 [History] [place]-3S/Dha/Epa/Fish Oil [Fish Oil 1,200 mg Softgel] 1 cap PO DAILY 07/17/15 [ History] Esomeprazole Magnesium [Nexium] 40 mg PO DAILY 08/07/17 [History] Sulfamethoxazole/Trimeth DS [Bactrim Ds] 1 cap PO Q12H 08/07/17 [History] 3 Allergy/AdvReac Type Severity Reaction Status Date / Time Penicillins [PCN] AdvReac Rash Verified 07/17/15 12:14 All systems: reviewed and no additional remarkable complaints except as stated Exam - Constitutional Vitals: Temp Pulse Resp BP Pulse Ox 98.1 F 67 14 136/75 94 08/11/17 14:34 08/11/17 14:34 08/11/17 14:34 08/11/17 14:34 08/11/17 14:34 General appearance: cooperative, no acute distress, obese - Head Head exam: Present: atraumatic, normal inspection, normocephalic - Eye Eye exam: Present: EOMI, normal appearance, PERRL Pupils: Present: normal accommodation - ENT ENT exam: Present: mucous membranes moist - Neck Neck exam: Present: normal inspection - Respiratory Respiratory exam: Present: CTAB. Absent: rales, respiratory distress, rhonchi, wheezes - Cardiovascular Cardiovascular exam: Present: RRR, +S1, +S2 - GI/Abdominal GI/Abdominal exam: Present: distended (obese), normal bowel sounds, soft. Absent: tenderness - Extremities Exam Extremities exam: Absent: joint swelling, pedal edema, tenderness Additional comments: Stage III ulcers noted to the lateral aspect of right toe #2 and medial aspect of right toe #3. No foul odor or purulent drainage noted. No warmth, erythema, or tenderness noted. - Neurological Exam Neurological exam: Present: alert, oriented X3, no focal deficits - Psychiatric Psychiatric exam: Present: normal affect, normal mood - Skin Skin exam: Present: dry, intact, normal color, warm Infectious Disease CN: Results - Labs CBC & Chem 7: 08/08/17 04:21 08/11/17 04:20 Cultures: Cultures 08/07/17 18:14 Blood Culture - Preliminary Peripheral Venipuncture No growth. 08/07/17 18:14 Blood Culture - Preliminary Peripheral Venipuncture No growth. Consult Discharge Plan - Plan Referrals: Janee Mcgowan MD [Primary Care Provider] -
--- NOTE | 2017-08-11 23:09 | Podiatry Progress Note ---
Date of Encounter: 08/11/17 Time of Encounter: 12:06 - Assessment and Plan (1) Cellulitis Current Visit: Yes Status: Acute We will continue Dakin solution and dressing changes. We will monitor for any increasing signs of infection. We will continue IV antibiotics. Qualifiers: Site of cellulitis: extremity Site of cellulitis of extremity: lower extremity Laterality: right Qualified Code(s): L03.115 - Cellulitis of right lower limb Subjective Principal diagnosis: Ulcer with possible infection Interval history: Patient relates overall improvement. Patient denies any new symptoms. Objective - Vital Signs Vital Signs: Vital Signs Temp Pulse Resp BP Pulse Ox 08/11/17 19:22 98.1 F 59 14 115/67 94 08/11/17 14:34 98.1 F 67 14 136/75 94 08/11/17 11:12 98.1 F 62 14 136/72 93 08/11/17 06:21 98.1 F 65 14 152/70 93 08/11/17 03:49 97.9 F 64 15 133/70 96 Intake and Output 08/11/17 08/11/17 08/11/17 07:59 15:59 23:59 Intake Total 100 / 100 600 / 600 340 / 340 Output Total 0 / 0 0 / 0 0 / 0 Balance 100 / 100 600 / 600 340 / 340 Intake: IV Fluids 100 / 100 100 / 100 Maxipime 1,000 MG In Dextrose 5 100 / 100 % (Minibag+) 100 ML 100 ML @ 200 mls/hr IVPB Q12HR [facility] Rx#: [id number] Rocephin 2,000 MG In Dextrose 5 100 / 100 % (Minibag+) 100 ML 100 ML @ 200 mls/hr IVPB DAILY [facility] Rx#: [id number] Oral 0 / 0 600 / 600 240 / 240 Output: Urine 0 / 0 0 / 0 0 / 0 Other: Meal Lunch Dinner Percent of Meal Consumed 75% 75% # Urine Diapers 1 1 1 Weight 87.3 kg Patient Weight 08/11/17 23:59 Weight 87.3 kg - Exam Exam: Awake, alert and oriented x3. Pedal pulses are palpable Toes are warm, cap refill 3-4 seconds No calf pain with manual compression No sensation to right foot to light or moderate touch Full thickness stage IV ulceration noted to lateral aspect toe #2 and medial aspect of toe #3. Wounds are almost connected besides a small amount of skin in between at the interspace there is significantly less maceration to webspaces of toes. wound of toe #2 [id number] with fibrous slough base, #3 2.5cmx2.5cmx0.3cm fibrous slough base and noted edges of necrotic tissue noted. No purulent drainage. No odor. Very little Erythema and edema noted to toes significant improvement from the previous. no streaking. no ascending cellulitis noted. - Lab Result Diagrams: 08/08/17 04:21 08/11/17 04:20 Labs: Abnormal lab results ESR 83 mm/hr (0-15) H 08/07/17 12:11 Est GFR (Non-Af Amer) 56 (> 60) L 08/11/17 04:20 Glucose 107 mg/dL (70-99) H 08/11/17 04:20 Magnesium 1.5 mg/dL (1.6-2.6) L 08/11/17 04:20 C-Reactive Protein 69 mg/L (Less than 5) H 08/07/17 12:11 Globulin 4.0 g/dL (2.4-3.5) H 08/07/17 12:11 Albumin/Globulin Ratio 0.9 (1.1-2.2) L 08/07/17 12:11 Consult Discharge Plan - Plan Referrals: Janee Mcgowan MD [Primary Care Provider] -
[2017-08-12] MEDS: *HR* Heparin 5,000 UNIT/ML VIAL SQ SCH (05:37)
[2017-08-12] MEDS: Metoprolol XL (24 HR) Succ 50 MG TAB.ER.24H PO SCH (08:26)
[2017-08-12] MEDS: Aspirin Enteric Coated 81 MG Tablet PO SCH (08:26)
[2017-08-12] MEDS ORDERED: hydroCHLOROthiazide 25 MG TABLET PO SCH (09:00)
--- NOTE | 2017-08-12 09:57 | Infectious Disease Progress No ---
Date of Encounter: 08/12/17 Time of Encounter: 09:55 - Assessment and Plan (1) Severe sepsis Current Visit: Yes Status: Resolved The patient had two SIRS criteria plus DEMETRIUS and lactic acidosis on admission. Likely secondary to right foot osteomyelitis and cellulitis. Improved. WBC has normalized. Tachycardia has resolved. Renal function and lactic acid levels are back to normal. Blood cultures drawn 08/07/17 are NGTD x 2 sets. (2) Osteomyelitis Current Visit: Yes Status: Acute Causative organism unclear, but likely Proteus mirabilis per wound culture obtained 08/01/17. Secondary to chronic foot ulcer of the second toe. MRI of the right foot shows findings consistent with osteomyelitis of the middle and distal phalanges of the third toe. ESR 83, CRP 69. Podiatry consulted and following: would like to attempt salvage therapy at this point. ABIs are normal. Continue Rocephin 2 grams IV daily. The patient has a documented allergy to PCN , but tolerated Cefepime without a problem. Duration of treatment depends on the clinical picture, but likely 6 weeks of IV antibiotics. student services coordinator to assist with discharge planning. The patient states she is okay with going to rehab for her IV antibiotics and wound care. Continue wound care and activity restrictions per the primary team. Get weekly CBC, BUN/Cr, ESR, and CRP every Friday for the duration of IV antibiotic therapy. Weekly EPIV care. Follow up with ID 08/26/17 at 0900. Qualifiers: Osteomyelitis type: other acute Osteomyelitis location: foot Laterality: right Qualified Code(s): M86.171 - Other acute osteomyelitis, right ankle and foot (3) Cellulitis of right foot Current Visit: Yes Status: Resolved Location: Right foot. Causative organism likely Proteus mirabilis. Likely secondary to chronic toe ulcer. Resolved. Continue wound care per podiatry's recommendations. Continue antibiotics as above. (4) Pressure ulcer with full thickness skin loss involving damage or necrosis of subcutaneous tissue Current Visit: Yes Status: Acute Chronic: Per the patient's daughter, this has been ongoing for about 6 weeks. Continue wound care per podiatry's recommendations. Qualifiers: Pressure ulcer location: toe Laterality: right Qualified Code(s): L89.893 - Pressure ulcer of other site, stage 3 (5) DEMETRIUS (acute kidney injury) Current Visit: Yes Status: Resolved Likely secondary to sepsis. Resolved. (6) Lactic acidosis Current Visit: Yes Status: Acute Likely secondary to sepsis. Resolved. (7) Peripheral neuropathy Current Visit: Yes Status: Chronic Qualifiers: Peripheral neuropathy type: polyneuropathy, unspecified Qualified Code(s): G62.9 - Polyneuropathy, unspecified (8) GERD (gastroesophageal reflux disease) Current Visit: Yes Status: Chronic Qualifiers: Esophagitis presence: without esophagitis Qualified Code(s): K21.9 - Gastro -esophageal reflux disease without esophagitis (9) Essential hypertension Current Visit: Yes Status: Chronic - Subjective Interval history: Patient seen and examined. No acute events noted overnight. Patient resting quietly in bed. Denies pain. Denies fevers, chills, or rigors. Denies nausea, vomiting, or diarrhea. Denies abdominal pain or urinary complaints. Denies chest pain, shortness of breath, or cough. States her appetite is good. Denies oral thrush or new skin lesions. Infect Dis PN-Objective Data - Labs CBC & Chem 7: 08/08/17 04:21 08/11/17 04:20 Cultures: Cultures 08/07/17 18:14 Blood Culture - Preliminary Peripheral Venipuncture No growth. 08/07/17 18:14 Blood Culture - Preliminary Peripheral Venipuncture No growth. Exam - Constitutional Vitals: Temp Pulse Resp BP Pulse Ox 98.1 F 65 18 160/79 98 08/12/17 07:57 08/12/17 07:57 08/12/17 07:57 08/12/17 07:57 08/12/17 07:57 General appearance: cooperative, no acute distress, obese - Head Head exam: Present: atraumatic, normal inspection, normocephalic - Eye Eye exam: Present: EOMI, normal appearance, PERRL Pupils: Present: normal accommodation - ENT ENT exam: Present: mucous membranes moist - Neck Neck exam: Present: normal inspection - Respiratory Respiratory exam: Present: CTAB. Absent: rales, respiratory distress, rhonchi, wheezes - Cardiovascular Cardiovascular exam: Present: RRR, +S1, +S2 - GI/Abdominal GI/Abdominal exam: Present: distended (obese), normal bowel sounds, soft. Absent: tenderness - Extremities Exam Additional comments: Right foot dressing C/D/I. - Neurological Exam Neurological exam: Present: alert, oriented X3, no focal deficits - Psychiatric Psychiatric exam: Present: normal affect, normal mood - Skin Skin exam: Present: dry, intact, normal color, warm Consult Discharge Plan - Plan Referrals: Janee Mcgowan MD [Primary Care Provider] - Daniella Swift CNP [Advanced Practice Nurse] - 08/26/17 9:00 am
--- NOTE | 2017-08-12 10:33 | Discharge Summary ---
Date of Encounter: 08/12/17 Time of Encounter: 10:28 - Discharge Diagnosis (1) Severe sepsis Priority: Primary Status: Resolved (2) Osteomyelitis Priority: Primary Status: Acute Qualifiers: Osteomyelitis type: other acute Osteomyelitis location: foot Laterality: right Qualified Code(s): M86.171 - Other acute osteomyelitis, right ankle and foot (3) Cellulitis of right foot Priority: Primary Status: Resolved (4) Essential hypertension Priority: Secondary Status: Chronic (5) Peripheral neuropathy Priority: Secondary Status: Chronic Qualifiers: Peripheral neuropathy type: polyneuropathy, unspecified Qualified Code(s): G62.9 - Polyneuropathy, unspecified (6) GERD (gastroesophageal reflux disease) Priority: Secondary Status: Chronic Qualifiers: Esophagitis presence: without esophagitis Qualified Code(s): K21.9 - Gastro -esophageal reflux disease without esophagitis (7) DEMETRIUS (acute kidney injury) Priority: Secondary Status: Resolved - Discharge Medications Prescriptions: cefTRIAXone [Rocephin] 2,000 mg IVPB DAILY 36 Days vial Saccharomyces Boulardii [Florastor] 250 mg PO BID #80 capsule Home Medications: Aspirin Enteric Coated [Aspirin EC] 81 mg PO DAILY 07/17/15 [History] Citalopram [CeleXA] 40 mg PO DAILY 07/17/15 [History] Ezetimibe/Simvastatin [Vytorin 10-80 mg Tablet] 1 tab PO DAILY 07/17/15 [History ] Metoprolol XL (24 HR) Succ [Toprol XL] 100 mg PO DAILY 07/17/15 [History] [place]-3S/Dha/Epa/Fish Oil [Fish Oil 1,200 mg Softgel] 1 cap PO DAILY 07/17/15 [ History] Esomeprazole Magnesium [Nexium] 40 mg PO DAILY 08/07/17 [History] Losartan [Cozaar] 100 mg PO DAILY tablet 08/12/17 [Rx] Saccharomyces Boulardii [Florastor] 250 mg PO BID #80 capsule 08/12/17 [Rx] Simvastatin [Zocor] 80 mg PO HS tablet 08/12/17 [Rx] Sodium Hypochlorite 0.25% [Dakin's (Half-Strength 0.25%)] 1 appl TP BID bottle 08/12/17 [Rx] cefTRIAXone [Rocephin] 2,000 mg IVPB DAILY 36 Days vial 08/12/17 [Rx] Allergies/Adverse Reactions: 3 Allergy/AdvReac Type Severity Reaction Status Date / Time Penicillins [PCN] AdvReac Rash Verified 07/17/15 12:14 Date of admission: 08/07/17 17:35 Primary care physician: Janee Mcgowan Consults: 08/07/17 17:40 Consult to Podiatry [CONS] Routine Consulting Provider: Pod[facility] Reason for Consult: Right foot wound and cellulitis. Call Completed: Yes 08/09/17 11:01 Consult to Small Business Representative [CONS] Routine Reason for SW Consult: ECF placement 08/11/17 09:43 Consult to Infectious Diseases [CONS] Routine Consulting Provider: Infectious [facility] Reason for Consult: Right 2nd and 3rd toe cellulitis and ?osteomyelitis Call Completed: Yes - Patient Status Disposition: Home, Self-Care Condition: Good Overall status at discharge: patient is back to baseline - Discharge Instructions Follow Up With: Janee Mcgowan MD [Primary Care Provider] - Daniella Swift CNP [Advanced Practice Nurse] - 08/26/17 9:00 am Frederic Sabillon DPM [Partnered Physician] - Additional Instructions: Q 2 weeks CBC, BMP, ESR and CRP - Diet and Activity Activity: as per physical therapy, increase activity as tolerated Diet: low salt diet Hospital course: mark Rodríguez is a 81 year old female is medical history of acid reflux, hyperlipidemia, hypertension, anxiety, and depression. The patient was admitted to the hospital August 07 for cellulitis of the right foot. She has been dealing with a right second toe ulcer for the last 6 weeks. She states she saw her PCP and was placed on a short course of oral Bactrim and the ulcer was looking good. She states she saw Dr. Sabillon for wound care recommendations and the foot was looking very good until last week when all of a sudden it began to get red and swollen and had a new ulcer appear on the third toe. She states she was put back on Bactrim, but the foot continued to worsen in the patient developed some altered mental status. She was instructed to emergency department for evaluation. Upon arrival, the patient was tachycardic and afebrile. She had leukocytosis with liquid predominance. ESR is elevated at 83 with a CRP of 69. Her lactic acid was 3.1. She also had acute kidney injury. A right foot x-ray negative for osteomyelitis. Blood cultures were obtained 2 sets and the patient was started on IV vancomycin and Cefepime. She was admitted to the hospital for further evaluation. Admission, the patient has been evaluated by podiatry at this point they would like to hold off on surgery. Her white blood cell count has normalized. Her acute kidney injury a lactic acidosis have resolved. ABIs were completed that were all. Her blood cx showed no growth. However her superficial wound culture came back on August 01 was positive for Proteus mirabilis that is resistant to fluroquinolones and Bactrim. Pt was evaluated by ID who recommend to continue IV Rocephin 2gm IV Daily for 36 more days total 6 weeks course. Pt had PICC line placed in today. Will d/c her to [facility] toay for short term PT / OT and Abx therapy - Time Spent with Patient Total time spent providing and/or coordinating discharge services: Greater than 30 minutes (Spend 35 minutes on this pt's discharge summary due to her complex medical problems) - Constitutional Vitals: Temp Pulse Resp BP Pulse Ox 98.1 F 65 18 160/79 98 08/12/17 07:57 08/12/17 07:57 08/12/17 07:57 08/12/17 07:57 08/12/17 07:57 General appearance: Present: A&O X 3, answers questions appropriately - Head Head exam: Present: atraumatic, normal inspection - Neck Neck exam general surgery: Present: supple - Respiratory Respiratory exam: Present: decreased breath sounds. Absent: rales, respiratory distress, rhonchi, wheezes - Cardiovascular Cardiovascular exam: Present: RRR, +S1, +S2. Absent: systolic murmur - GI/Abdominal GI/Abdominal exam: Present: normal bowel sounds, soft. Absent: rebound, rigid, tenderness - Extremities Exam Extremities exam: Absent: calf tenderness, pedal edema, tenderness Additional comments: improved swelling and erythema in Rt foot noticed. Healing ulcer noticed over Rt 3rd toe plantar region - Back Exam Back exam: Absent: CVA tenderness (L), CVA tenderness (R) - Neurological Exam Neurological exam: Present: alert, oriented X3 - Psychiatric Psychiatric exam: Present: normal affect, normal mood
--- NOTE | 2017-08-12 10:38 | Physician Discharge Referral ---
ExtendedCare Referral Info Transfer To: SNF Provider in Charge after Transfer: PCP Institutional Level of Care: Skilled - Diagnosis (1) Severe sepsis Status: Resolved (2) Osteomyelitis Status: Acute (3) Cellulitis of right foot Status: Resolved (4) Essential hypertension Status: Chronic (5) Peripheral neuropathy Status: Chronic (6) GERD (gastroesophageal reflux disease) Status: Chronic (7) DEMETRIUS (acute kidney injury) Status: Resolved - Transfer Medications Prescriptions: cefTRIAXone [Rocephin] 2,000 mg IVPB DAILY 36 Days vial Saccharomyces Boulardii [Florastor] 250 mg PO BID #80 capsule Home Medications: Aspirin Enteric Coated [Aspirin EC] 81 mg PO DAILY 07/17/15 [History] Citalopram [CeleXA] 40 mg PO DAILY 07/17/15 [History] Ezetimibe/Simvastatin [Vytorin 10-80 mg Tablet] 1 tab PO DAILY 07/17/15 [History ] Metoprolol XL (24 HR) Succ [Toprol XL] 100 mg PO DAILY 07/17/15 [History] [place]-3S/Dha/Epa/Fish Oil [Fish Oil 1,200 mg Softgel] 1 cap PO DAILY 07/17/15 [ History] Esomeprazole Magnesium [Nexium] 40 mg PO DAILY 08/07/17 [History] Losartan [Cozaar] 100 mg PO DAILY tablet 08/12/17 [Rx] Saccharomyces Boulardii [Florastor] 250 mg PO BID #80 capsule 08/12/17 [Rx] Simvastatin [Zocor] 80 mg PO HS tablet 08/12/17 [Rx] Sodium Hypochlorite 0.25% [Dakin's (Half-Strength 0.25%)] 1 appl TP BID bottle 08/12/17 [Rx] cefTRIAXone [Rocephin] 2,000 mg IVPB DAILY 36 Days vial 08/12/17 [Rx] Allergies/Adverse Reactions: 3 Allergy/AdvReac Type Severity Reaction Status Date / Time Penicillins [PCN] AdvReac Rash Verified 07/17/15 12:14 - Respiratory Orders Smoking Cessation: Smoking cessation has been advised. For more information, call the [place] Tobacco Quit Line at 3-718-QDWI-NOW. CERTIFICATION: I certify that the transfer of the above named patient to an Extended Care Facility is necessary for the continuing treatment of the diagnosis listed. The above information is true and accurate reflection of patient's current condition. Confidential - Redisclosure prohibited without a patient's written consent.
[2017-08-12 11:38] VITALS: BP 127/72
== END 2017-08-12 13:57 | disposition home or self-care (01) | DRG 871 ==
LOC: 3ANU 11:40 → EMEROO 11:40 → 3ANU 15:51 → SUATTDRO 17:35
PROVIDERS: ADMIT Internal Medicine; ATTEND Family Medicine